=== PATIENT | male | born 1985 | race Caucasian/White ===

== ENCOUNTER 2021-12-16 16:23 | Inpatient (IN) | payer SELFPAY ==
[2021-12-16] MEDS ORDERED: Sodium Chloride 0.9% 10 ML Syringe FLUSH PRN (16:35)
[2021-12-16] MEDS ORDERED: Sodium Chloride 0.9% 2.5 ML Syringe FLUSH PRN (16:35)
[2021-12-16] MEDS ORDERED: Sodium Chloride 0.9% 1,000 ML IV ONE ×2 (16:35→18:37)
[2021-12-16] MEDS ORDERED: Ondansetron 4 MG/2 ML SDV IVPUSH ONE (16:36)
[2021-12-16] MEDS ORDERED: HYDROmorphone 1 MG/ML Syringe IVPUSH ONE (16:36)
[2021-12-16 17:08] LABS: BLOOD UREA NITROGEN,BUN 1 mg/dL (7.0-18.0); CARBON DIOXIDE,CO2 24.4 mmol/L (21.0-32.0); CHLORIDE,CL 95 mmol/L (98-107); GLUCOSE RANDOM 122 mg/dL (74-106); LIPASE 199 U/L (73-393); POTASSIUM,K 3.1 mmol/L (3.5-5.1); SODIUM,NA 130 mmol/L (136-148)
[2021-12-16 17:32] LABS: CORONAVIRUS COVID-19 NAA NEGATIVE (NEGATIVE); INFLUENZA A NAA NEGATIVE (NEGATIVE); INFLUENZA B NAA NEGATIVE (NEGATIVE)
[2021-12-16] MEDS ORDERED: Potassium Chloride 20 MEQ Tab.ER PO ONE (17:33)
[2021-12-16] MEDS ORDERED: Iopamidol 755 MG/ML 500 ML Multipack Bottle IVPUSH ONE (18:34)
[2021-12-16] MEDS ORDERED: HYDROmorphone 2 MG/ML Syringe IVPUSH ONE (18:37)
[2021-12-16] MEDS ORDERED: Folic Acid 1 MG Tab PO SCH (21:00)
[2021-12-16] MEDS: HYDROmorphone 1 MG/ML Syringe IVPUSH PRN (22:33)
[2021-12-16] MEDS ORDERED: LORazepam 2 MG/ML SDV IVPUSH PRN (23:01)
[2021-12-16] MEDS: Folic Acid 1 MG Tab PO SCH (23:33)
[2021-12-16] MEDS: Thiamine 200 MG/2 ML MDV IVPUSH SCH (23:33)
[2021-12-17] MEDS: HYDROmorphone 1 MG/ML Syringe IVPUSH PRN ×3 (04:23→15:03)
[2021-12-17] MEDS: Morphine 2 MG/ML SYRINGE IVPUSH PRN ×3 (06:28→18:59)
[2021-12-17 08:06] LABS: BLOOD UREA NITROGEN,BUN 1 mg/dL (7.0-18.0); CARBON DIOXIDE,CO2 24.8 mmol/L (21.0-32.0); CHLORIDE,CL 99 mmol/L (98-107); GLUCOSE RANDOM 86 mg/dL (74-106); POTASSIUM,K 3.7 mmol/L (3.5-5.1); SODIUM,NA 131 mmol/L (136-148)
[2021-12-17] MEDS: Thiamine 200 MG/2 ML MDV IVPUSH SCH (09:13)
[2021-12-17] MEDS ORDERED: Carboxymethylcellulose Sodium 0.5% Ophth Soln 0.4 ML UD Box of 30 EYEBOTH PRN (10:22)
[2021-12-17] MEDS ORDERED: Docusate Sodium 100 MG Cap PO PRN (10:23)
[2021-12-17] MEDS ORDERED: Furosemide 40 MG/4 ML VIAL IVPUSH ONE (14:16)
[2021-12-17] MEDS ORDERED: cefTRIAXone 1 GM in Sodium Chloride 0.9% 50 ML IV SCH (14:30)
[2021-12-17] MEDS: Folic Acid 1 MG Tab PO SCH (20:18)
== END 2021-12-18 04:45 | disposition left against medical advice (07) | DRG 433 ==
LOC: MW.ED 16:23 → MW.MS 19:47
PROVIDERS: ADMIT Internal Medicine; ATTEND Internal Medicine
DX: K70.11 Alcoholic hepatitis with ascites (principal); E87.1 Hypo-osmolality and hyponatremia; N39.0 Urinary tract infection, site not specified; K70.30 Alcoholic cirrhosis of liver without ascites; E80.6 Other disorders of bilirubin metabolism; D69.6 Thrombocytopenia, unspecified; Z20.822 Contact with and (suspected) exposure to COVID-19; E87.6 Hypokalemia; R00.0 Tachycardia, unspecified; Z53.29 Procedure and treatment not carried out because of patient's decision for other reasons; Z88.0 Allergy status to penicillin
CPT/HCPCS: 0240U; 36415; 71045; 71045-26; 74177; 74177-26; 76700; 76700-26; 80053; 80074; 80143; 80307; 81001; 82103; 82140; 82247; 82248; 82390; 82728; 82977; 83516; 83690; 83735; 84484; 85025; 85027; 85610; 85730; 86255; 86308; 86376; 86803; 87086; 87340; 93005; 96374; 96375; 96376; 99285-25; A9270-GY; J0696; J1170; J1940; J2270; J2405; J3411; J3490; J7030; Q9967

== ENCOUNTER 2022-01-15 17:30 | Emergency (ER) | payer SELFPAY ==
[2022-01-15 18:25] LABS: CARBON DIOXIDE,CO2 19.8 mmol/L (21.0-32.0); POTASSIUM,K 4.2 mmol/L (3.5-5.1)
[2022-01-15] MEDS ORDERED: Sodium Chloride 0.9% 2.5 ML Syringe FLUSH PRN (18:29)
[2022-01-15] MEDS ORDERED: Sodium Chloride 0.9% 1,000 ML IV ONE (18:29)
[2022-01-15] MEDS ORDERED: Sodium Chloride 0.9% 10 ML Syringe FLUSH PRN (18:29)
[2022-01-15] MEDS ORDERED: HYDROmorphone 1 MG/ML Syringe IVPUSH ONE (18:49)
[2022-01-15] MEDS ORDERED: HYDROmorphone 2 MG/ML Syringe IVPUSH ONE ×2 (19:34→21:07)
[2022-01-15] MEDS ORDERED: hydrOXYzine HCl 25 MG Tab PO ONE ×2 (20:11→21:07)
[2022-01-15] MEDS ORDERED: Levofloxacin/Dextrose 5%-Water 750 MG in Premix Bag 1 BAG IV ONE (21:06)
[2022-01-15] MEDS ORDERED: metroNIDAZOLE 250 MG Tab PO ONE (21:06)
== END 2022-01-15 23:04 | disposition home or self-care (01) ==
LOC: MW.ED 17:30
DX: K74.60 Unspecified cirrhosis of liver (principal); D72.829 Elevated white blood cell count, unspecified; Z88.0 Allergy status to penicillin; Z88.8 Allergy status to other drugs, medicaments and biological substances; Z20.822 Contact with and (suspected) exposure to COVID-19
CPT/HCPCS: 36415; 71045; 74177; 80053; 80305; 80307; 81003; 82140; 83735; 84145; 85025; 85610; 87040; 87635; 93005; 96361; 96365; 96366; 96375; 96376; 99284; A9270; J1170; J1956; J3490; J7030; 93010; U0002

== ENCOUNTER 2022-03-21 10:26 | Emergency (ER) | payer MEDICAID ==
[2022-03-21] MEDS ORDERED: Sodium Chloride 0.9% 1,000 ML IV ONE (10:45)
[2022-03-21] MEDS ORDERED: Pantoprazole 80 MG in Sodium Chloride 0.9% 10 ML IVPUSH ONE (10:47)
[2022-03-21] MEDS ORDERED: cefTRIAXone 1 GM in Sodium Chloride 0.9% 50 ML IV ONE (10:47)
[2022-03-21] MEDS ORDERED: Octreotide 100 MCG/1 ML Amp IV ONE ×2 (10:49→12:15)
[2022-03-21] MEDS ORDERED: Ondansetron 4 MG/2 ML SDV IVPUSH ONE (10:50)
[2022-03-21] MEDS ORDERED: Octreotide 500 MCG in Sodium Chloride 0.9% 495 ML IV SCH ×2 (11:00→12:15)
[2022-03-21 11:50] LABS: CARBON DIOXIDE,CO2 25.3 mmol/L (21.0-32.0); POTASSIUM,K 3.9 mmol/L (3.5-5.1)
[2022-03-21] MEDS ORDERED: Morphine 4 MG/ML VIAL IVPUSH ONE (12:01)
[2022-03-21] MEDS ORDERED: HYDROmorphone 2 MG/ML Syringe IVPUSH ONE (14:29)
== END 2022-03-21 15:16 ==
LOC: MW.ED 10:26
DX: K92.2 Gastrointestinal hemorrhage, unspecified (principal); Z88.0 Allergy status to penicillin; Z88.8 Allergy status to other drugs, medicaments and biological substances; Z20.822 Contact with and (suspected) exposure to COVID-19
CPT/HCPCS: 36415; 80053; 83605; 83690; 83735; 84484; 85025; 85610; 85730; 86850; 86900; 86901; 87040; 87635; 96361; 96365; 96366; 96375; 99285; C9113; J0696; J1170; J2270; J2354; J2405; J3490; J7030; J7040; 99291; U0002

== ENCOUNTER 2024-06-09 15:42 | Emergency (ER) | payer BC ==
[2024-06-09 16:29] LABS: BASOPHILS ABSOLUTE AUTO 0.07 K/uL (0.00-0.20); BASOPHILS PERCENT AUTO 1.4 % (0.0-1.0); EOSINOPHILS ABSOLUTE AUTO 0.02 K/uL (0.00-0.45); EOSINOPHILS PERCENT AUTO 0.4 % (0.0-6.0); HEMATOCRIT 45.5 % (42.0-52.0); HEMOGLOBIN 16.1 g/dL (14.0-18.0); IMMATURE GRAN ABSOLUTE AUTO 0.02 K/uL (0.00-0.05); IMMATURE GRAN PERCENT AUTO 0.4 % (0.0-0.4); LYMPHOCYTES ABSOLUTE AUTO 0.97 K/uL (1.00-4.80); LYMPHOCYTES PERCENT AUTO 19.8 % (24.0-44.0); MEAN CORPUSCULAR HEMOGLOBIN 29.8 pg (28.0-32.0); MEAN CORPUSCULAR HGB CONC 35.4 g/dL (32.0-36.0); MEAN CORPUSCULAR VOLUME 84.3 fL (83.0-99.0); MEAN PLATELET VOLUME 10.3 fL (9.4-12.4); MONOCYTES ABSOLUTE AUTO 0.43 K/uL (0.00-0.80); MONOCYTES PERCENT AUTO 8.8 % (0.0-8.0); NEUTROPHILS ABSOLUTE AUTO 3.39 K/uL (1.80-7.70); NEUTROPHILS PERCENT AUTO 69.2 % (41.0-71.0); PLATELET COUNT,PLT 97 K/uL (150-400)
[2024-06-09 17:01] LABS: A/G RATIO 0.9 (0.9-1.6); ALBUMIN 3.6 g/dL (3.4-5.0); BILIRUBIN TOTAL 2.6 mg/dL (0.2-1.0); CALCIUM 8.6 mg/dL (8.5-10.1); CARBON DIOXIDE,CO2 26.2 mmol/L (21.0-32.0); CREATININE 1.3 mg/dL (0.8-1.3); EST CRCL DRUG DOSING (CG) 82.91 mL/min; MAGNESIUM 1.8 mg/dL (1.8-2.4); POTASSIUM,K 3.5 mmol/L (3.5-5.1); PROTEIN TOTAL,TP 7.8 g/dL (6.4-8.2)
== END 2024-06-09 18:35 ==
LOC: MW.ED 15:42
DX: R55 Syncope and collapse (principal); F10.129 Alcohol abuse with intoxication, unspecified; D69.6 Thrombocytopenia, unspecified; R94.5 Abnormal results of liver function studies; R10.84 Generalized abdominal pain; R07.9 Chest pain, unspecified; Z90.89 Acquired absence of other organs; Z88.0 Allergy status to penicillin; Z88.8 Allergy status to other drugs, medicaments and biological substances; Y90.8 Blood alcohol level of 240 mg/100 ml or more
CPT/HCPCS: 36415; 71046; 71046-26; 80053; 80307; 83690; 83735; 84484; 85025; 93005; 99285

== ENCOUNTER 2024-06-09 21:17 | Inpatient (IN) | payer BC ==
[2024-06-09] MEDS ORDERED: Sodium Chloride 0.9% 2.5 ML Syringe FLUSH PRN (21:18)
[2024-06-09] MEDS ORDERED: Sodium Chloride 0.9% 20 ML SDV IV PRN (21:18)
[2024-06-09] MEDS ORDERED: Sodium Chloride 0.9% 10 ML Syringe FLUSH PRN (21:18)
[2024-06-09 21:56] LABS: BASOPHILS ABSOLUTE AUTO 0.07 K/uL (0.00-0.20); BASOPHILS PERCENT AUTO 1.3 % (0.0-1.0); EOSINOPHILS ABSOLUTE AUTO 0.02 K/uL (0.00-0.45); EOSINOPHILS PERCENT AUTO 0.4 % (0.0-6.0); HEMATOCRIT 43.2 % (42.0-52.0); HEMOGLOBIN 15.8 g/dL (14.0-18.0); IMMATURE GRAN ABSOLUTE AUTO 0.02 K/uL (0.00-0.05); IMMATURE GRAN PERCENT AUTO 0.4 % (0.0-0.4); LYMPHOCYTES ABSOLUTE AUTO 1.21 K/uL (1.00-4.80); LYMPHOCYTES PERCENT AUTO 23.3 % (24.0-44.0); MEAN CORPUSCULAR HEMOGLOBIN 30.4 pg (28.0-32.0); MEAN CORPUSCULAR HGB CONC 36.6 g/dL (32.0-36.0); MEAN CORPUSCULAR VOLUME 83.1 fL (83.0-99.0); MEAN PLATELET VOLUME 10.1 fL (9.4-12.4); MONOCYTES ABSOLUTE AUTO 0.48 K/uL (0.00-0.80); MONOCYTES PERCENT AUTO 9.2 % (0.0-8.0); NEUTROPHILS PERCENT AUTO 65.4 % (41.0-71.0); PLATELET COUNT,PLT 101 K/uL (150-400)
[2024-06-09] MEDS: Ketorolac 30 MG/ML SDV IVPUSH ONE (21:56)
[2024-06-09] MEDS: LORazepam 2 MG/ML SDV IVPUSH ONE (21:57)
[2024-06-09 22:23] LABS: BLOOD UREA NITROGEN,BUN 3 mg/dL (7.0-18.0); CALCIUM 8.5 mg/dL (8.5-10.1); CARBON DIOXIDE,CO2 21.5 mmol/L (21.0-32.0); CHLORIDE,CL 105 mmol/L (98-107); CREATININE 1.3 mg/dL (0.8-1.3); ESTIMATED GFR 71 mL/min (>60); ETHANOL BLOOD MEDICAL 157 mg/dL; GLUCOSE RANDOM 113 mg/dL (74-106); POTASSIUM,K 3.5 mmol/L (3.5-5.1); SODIUM,NA 140 mmol/L (136-148)
[2024-06-09] MEDS: Pantoprazole 40 MG in Sodium Chloride 0.9% 10 ML IVPUSH ONE (22:37)
[2024-06-09] MEDS: Haloperidol Lactate 5 MG/ML SDV IM ONE (22:37)
[2024-06-09 22:50] LABS: A/G RATIO 0.9 (0.9-1.6); ALBUMIN 3.6 g/dL (3.4-5.0); BILIRUBIN DIRECT 1.3 mg/dL (0.0-0.5); BILIRUBIN INDIRECT 1.8; BILIRUBIN TOTAL 3.1 mg/dL (0.2-1.0); PROTEIN TOTAL,TP 7.7 g/dL (6.4-8.2)
[2024-06-10] MEDS ORDERED: LORazepam 2 MG/ML SDV IVPUSH PRN ×2 (00:54→07:10)
[2024-06-10] MEDS: Octreotide 100 MCG/1 ML Amp IV ONE (01:21)
[2024-06-10 05:43] LABS: BASOPHILS ABSOLUTE AUTO 0.08 K/uL (0.00-0.20); BASOPHILS PERCENT AUTO 1.5 % (0.0-1.0); EOSINOPHILS ABSOLUTE AUTO 0.07 K/uL (0.00-0.45); EOSINOPHILS PERCENT AUTO 1.3 % (0.0-6.0); HEMOGLOBIN 14.8 g/dL (14.0-18.0); IMMATURE GRAN ABSOLUTE AUTO 0.02 K/uL (0.00-0.05); IMMATURE GRAN PERCENT AUTO 0.4 % (0.0-0.4); LYMPHOCYTES PERCENT AUTO 27.4 % (24.0-44.0); MEAN CORPUSCULAR HGB CONC 35.2 g/dL (32.0-36.0); MEAN PLATELET VOLUME 10.7 fL (9.4-12.4); MONOCYTES ABSOLUTE AUTO 0.57 K/uL (0.00-0.80); MONOCYTES PERCENT AUTO 10.4 % (0.0-8.0); NEUTROPHILS ABSOLUTE AUTO 3.24 K/uL (1.80-7.70); PLATELET COUNT,PLT 93 K/uL (150-400); RED BLOOD CELL COUNT 4.94 M/uL (4.52-5.90); WHITE BLOOD CELL COUNT,WBC 5.48 K/uL (3.9-11.3)
[2024-06-10 06:07] LABS: A/G RATIO 0.9 (0.9-1.6); ALBUMIN 3.3 g/dL (3.4-5.0); BILIRUBIN TOTAL 4.1 mg/dL (0.2-1.0); CALCIUM 8.1 mg/dL (8.5-10.1); CARBON DIOXIDE,CO2 22.9 mmol/L (21.0-32.0); CREATININE 1.2 mg/dL (0.8-1.3); EST CRCL DRUG DOSING (CG) 81.83 mL/min; POTASSIUM,K 4.6 mmol/L (3.5-5.1); PROTEIN TOTAL,TP 7.1 g/dL (6.4-8.2)
[2024-06-10] MEDS ORDERED: LORazepam 1 MG Tab PO PRN (07:11)
[2024-06-10] MEDS ORDERED: Naloxone 0.4 MG/ML SDV IVPUSH PRN (08:04)
[2024-06-10] MEDS ORDERED: Sodium Chloride 0.9% 10 ML Syringe FLUSH PRN (08:07)
[2024-06-10] MEDS ORDERED: Ondansetron 4 MG/2 ML SDV IVPUSH PRN (08:07)
[2024-06-10] MEDS ORDERED: Sodium Chloride 0.9% 20 ML SDV IV PRN (08:07)
[2024-06-10] MEDS ORDERED: Sodium Chloride 0.9% 2.5 ML Syringe FLUSH PRN (08:07)
[2024-06-10] MEDS ORDERED: PHENobarbital Sodium 130 MG/ML SDV IVPUSH PRN (08:20)
[2024-06-10] MEDS ORDERED: PHENobarbital 32.4 MG Tab PO PRN ×3 (08:20)
[2024-06-10] MEDS: Morphine 4 MG/ML Syringe IVPUSH ONE (08:29)
[2024-06-10] MEDS: Sodium Chloride 0.9% 1,000 ML IV SCH (08:32)
[2024-06-10] MEDS ORDERED: Thiamine 100 MG in Sodium Chloride 0.9% 100 ML IV SCH (09:00)
[2024-06-10] MEDS: Pantoprazole 40 MG in Sodium Chloride 0.9% 10 ML IVPUSH SCH ×2 (09:41→09:43)
[2024-06-10] MEDS: Thiamine 200 MG/2 ML MDV IVPUSH SCH (09:45)
[2024-06-10] MEDS: Folic Acid 1 MG/0.2 ML UD Syringe IV SCH (09:45)
[2024-06-10] MEDS: Octreotide 500 MCG in Sodium Chloride 0.9% 250 ML IV SCH (10:42)
[2024-06-10] MEDS: Iopamidol 755 MG/ML 500 ML Multipack Bottle IVPUSH STA (11:22)
[2024-06-10] MEDS: Morphine 4 MG/ML Syringe IVPUSH PRN ×2 (12:26→14:51)
[2024-06-10 14:34] LABS: HEMATOCRIT 39.2 % (42.0-52.0); HEMOGLOBIN 13.9 g/dL (14.0-18.0)
[2024-06-10 18:48] LABS: AMPHETAMINES SCREEN, URINE NEGATIVE (CUTOFF=500); BARBITURATE SCREEN,URINE PRESUMPTIVE POSITIVE (CUTOFF=200); BENZODIAZEPINES SCREEN,URINE PRESUMPTIVE POSITIVE (CUTOFF=150); BUPRENORPHINE SCREEN,URINE NEGATIVE (CUTOFF=10); METHADONE SCREEN, URINE NEGATIVE (CUTOFF=200); METHAMPHETAMINES SCREEN, URINE NEGATIVE (CUTOFF=500); OXYCODONE SCREEN,URINE NEGATIVE (CUT0FF=100); PCP SCREEN,URINE NEGATIVE (CUTOFF=25); THC SCREEN,URINE 20 NG/ML NEGATIVE (CUTOFF=50)
[2024-06-11] MEDS: Melatonin 3 MG Tab PO PRN (00:02)
[2024-06-11 05:47] LABS: BASOPHILS ABSOLUTE AUTO 0.04 K/uL (0.00-0.20); BASOPHILS PERCENT AUTO 1.8 % (0.0-1.0); EOSINOPHILS ABSOLUTE AUTO 0.08 K/uL (0.00-0.45); EOSINOPHILS PERCENT AUTO 3.5 % (0.0-6.0); HEMATOCRIT 34.9 % (42.0-52.0); HEMOGLOBIN 12.4 g/dL (14.0-18.0); LYMPHOCYTES ABSOLUTE AUTO 0.56 K/uL (1.00-4.80); LYMPHOCYTES PERCENT AUTO 24.8 % (24.0-44.0); MEAN CORPUSCULAR HEMOGLOBIN 30.5 pg (28.0-32.0); MEAN CORPUSCULAR HGB CONC 35.5 g/dL (32.0-36.0); MEAN PLATELET VOLUME 9.7 fL (9.4-12.4); MONOCYTES ABSOLUTE AUTO 0.23 K/uL (0.00-0.80); MONOCYTES PERCENT AUTO 10.2 % (0.0-8.0); NEUTROPHILS ABSOLUTE AUTO 1.35 K/uL (1.80-7.70); NEUTROPHILS PERCENT AUTO 59.7 % (41.0-71.0); PLATELET COUNT,PLT 56 K/uL (150-400); RED BLOOD CELL COUNT 4.06 M/uL (4.52-5.90); WHITE BLOOD CELL COUNT,WBC 2.26 K/uL (3.9-11.3)
[2024-06-11 06:13] LABS: A/G RATIO 0.9 (0.9-1.6); ALBUMIN 2.9 g/dL (3.4-5.0); CALCIUM 7.7 mg/dL (8.5-10.1); CARBON DIOXIDE,CO2 24.1 mmol/L (21.0-32.0); CREATININE 1.3 mg/dL (0.8-1.3); EST CRCL DRUG DOSING (CG) 75.53 mL/min; MAGNESIUM 1.3 mg/dL (1.8-2.4); POTASSIUM,K 4.2 mmol/L (3.5-5.1)
[2024-06-11] MEDS: Magnesium Sulfate/Water Premix 4 GM in Premix Bag 1 BAG IV ONE (08:14)
[2024-06-11] MEDS: oxyCODONE 5 MG Tab PO ONE (12:55)
[2024-06-12 19:02] LABS: HAV AB IGM Negative (Negative); HBC IGM Negative (Negative); HEP B SURG AG Negative (Negative); HEP C AB BY CIA Negative (Negative); HEP C AB BY CIA INDEX 0.17 IV
== END 2024-06-11 13:30 | disposition left against medical advice (07) | DRG 770 ==
LOC: MW.ED 21:17 → MW.MS 23:58 → UNDOADMOB 23:58 → INTOOBSV 06-10 08:27 → OBSVTOIN 06-10 08:27 → MW.ICU 06-10 09:07
PROVIDERS: ADMIT Family Medicine; ATTEND Family Medicine
DX: F10.139 Alcohol abuse with withdrawal, unspecified (principal); I85.11 Secondary esophageal varices with bleeding; K92.2 Gastrointestinal hemorrhage, unspecified; K70.10 Alcoholic hepatitis without ascites; K70.30 Alcoholic cirrhosis of liver without ascites; D69.59 Other secondary thrombocytopenia; E80.6 Other disorders of bilirubin metabolism; F10.120 Alcohol abuse with intoxication, uncomplicated; F41.9 Anxiety disorder, unspecified; K80.20 Calculus of gallbladder without cholecystitis without obstruction; Z88.0 Allergy status to penicillin; Z98.890 Other specified postprocedural states; Z90.89 Acquired absence of other organs; Z95.828 Presence of other vascular implants and grafts
CPT/HCPCS: 36415; 71045; 71045-26; 74177; 74177-26; 74181; 74181-26; 76705; 76705-26; 80048; 80053; 80074; 80076; 80305-QW; 80307; 83690; 83735; 84484; 85014; 85018; 85025; 85379; 93005; 96372; 96374; 96375; 99284; 99285-25; A9270-GY; G0378; J1630; J1885; J2060; J2270; J2354-JA; J2470; J2560; J3411; J3475; J3490; J7030; J7050; Q9967